=== PATIENT | female | born 1975 | race Two or more races ===

== ENCOUNTER 2021-11-07 17:26 | Emergency (ER) | payer OTHER ==
[~2021-11-07] VITALS: Ht 175.3 cm; Wt 90.7 kg
[2021-11-07] MEDS ORDERED: MONTELUKAST SODI4 M1 PO (17:39)
[2021-11-07] MEDS ORDERED: PROVENTIL HFA6.7 GM IH (17:40)
== END 2021-11-07 21:53 | disposition home or self-care (01) ==
LOC: ER 17:26
DX: R20.0 Anesthesia of skin (principal); R20.2 Paresthesia of skin; J32.9 Chronic sinusitis, unspecified; Z88.6 Allergy status to analgesic agent